=== PATIENT | female | born 1995 | race Caucasian/White ===

== ENCOUNTER 2023-06-05 00:32 | Emergency (ER) | payer MEDICAID, SELFPAY ==
[2023-06-05 00:37] VITALS: BP 139/91; PULSE 90; RESP 18; TEMP 36.3; O2SAT 99; BMI 37.7
[2023-06-05 02:47] VITALS: BP 130/80; PULSE 90; RESP 18; O2SAT 99
--- NOTE | 2023-06-05 05:15 | ED_ITS ---
HPI - General Adult General Chief complaint: Chest Pain Stated complaint: Chest pain Time Seen by Provider: 06/05/23 01:17 History of Present Illness HPI narrative: Downtime note Amanda Alaniz? Note was created in EMR down time.? Cut and pasted into EMR post visit. 27-year-old female presents the emergency department with a 6+ hour history of pain in the left arm radiating into the left chest with a feeling of vague shortness of breath.? Worse with lying down.? Nonexertional.? No palpitations.? No dyspnea on exertion, no swelling in her legs.? Pain is a little worse with movement as well.? Did not try any Tylenol or ibuprofen to help with her symptoms.? Reports that she was at a bridal shower the day prior had been drinking alcohol.? Woke up yesterday morning feeling a little hung over.? [place] a little nauseated through the day and laid down for a nap.? Pain was present when she awoke at approximately 6:00 p.m..? She has been eating and drinking normally.? Says that the chest feels ?full?.? Symptoms seem to be intermittent.? She has a notable history of a PFO, diagnosed by echo after murmur was heard in the clinic.? It is not symptomatic nor does she have any significant shunting or cardiac dysfunctioning as a result of this.? There is no family history of premature coronary artery disease.? She does not smoke.? No recent trauma, injury or heavy lifting.? She does have a 2-year-old that she carries frequently per her report. Past medical history benign per her report, no major long-term health problems.? No prescription medications, no allergies.? Nonsmoker. ROS is notable for the musculoskeletal and chest symptoms as above.? Negative further other generalized, cardiac, respiratory, GI, neurological, skin, other musculoskeletal concerns. On exam, blood pressure 139/91 with pulse 90 respiratory rate 18 temp 97.3? O2 sats are 99% on room air.? Generally she is awake and alert is not in distress good historian.? Mood behavior and affect are appropriate.? Head is atraumatic eyes with normal-appearing pupils and conjunctiva, normal visual gaze.? Orop harynx with acyanotic lips and moist membranes.? Neck with normal range of motion, no cervical tenderness.? Chest is normal to inspection.? Heart with regular rate rhythm, no murmurs rubs or gallops are heard.? Positive S1 and S2 with no gallop.? Lungs with good air entry in all lung keith no wheezes rales or rhonchi.? Musculoskeletal exam shows normal range of motion of both shoulders.? Positive impingement signs on left.? Normal range of motion of elbow wrist and hands.? No weakness to biceps, triceps or packed muscles.? Mild tenderness to palpation of supraspinatus and infraspinatus muscle bellies.? Pain can be reproduced with manipulation of rotator cuff supporting musculature.? No weakness or sensory deficits in hand.? Mood behavior and affect are appropriate with normal insight reasoning and judgment.? Skin warm well perfused without any rash. EKG is performed.? Normal sinus rhythm, rate of 86.? Normal axis.? No significant ST or T-wave abnormalities.? No ischemia, normal EKG.? Recommended some basic blood work, CBC, troponin, basic metabolic panel.? She will be given Toradol and cyclobenzaprine for suspected rotator cuff impingement.? Await findings. Blood work is back showing a white count of 10, hemoglobin 13.1 platelets of 241, troponin 0.00 as expected.? All normal, as expected.? Patient is noting improvement with the Toradol and Flexeril.? We discussed the rotator cuff type pain, long-term management.? She will follow up with her primary care provider if her symptoms persist for physical therapy referral.? See discharge instructions.? All questions answered. Discharge instructions Amanda Alaniz Unfortunately, our computer system is down for routine maintenance.? This happens about once a month.? As we discussed, your symptoms seem consistent with a rotator cuff inflammation.? These are very common.? There are no signs of any problems with her heart, blood work, EKG or other studies today.? I recommend for the pain, you start with Tylenol 1000 mg every 6 hours.? At on the prescription Toradol which is an anti-inflammatory medication that I have provided.? Take 1 tablet every 6-8 hours if the pain is still bothersome.? I will also give you a limited supply of Flexeril which is a muscle relaxant.? This may cause sleepiness so I recommend that you start with a half of a pill mostly for bedtime but can be used during the day if the pain is very bothersome.? I would recommend that you start a home exercise plan and be very mindful of what activities you may be doing that flare up your pain.? If your symptoms persist, I would recommend that you talk to your primary care doctor about a referral for physical therapy and an x-ray, stronger anti-inflammatory medication and or an injection. Come back to the emergency department if you have chest pain that is accompanied by rapid heart rate, feeling of passing out, severe shortness of breath, especially if your symptoms worsen with activity. Related Data Home Medications Medication Instructions Recorded Confirmed No Known Home Medications 06/05/23 06/05/23 Allergies Allergy/AdvReac Type Severity Reaction Status Date / Time No Known Drug Allergies Allergy Verified 06/05/23 00:46 PFSH PFS Social History Smoking Status: Former smoker Do you use any of these nicotine containing products: Vaping Products How often do you have a drink containing alcohol: 2-4 times a month How often do you have six or more drinks on one occasion: Never AUDIT-C Alcohol total score: 2 Non-prescribed substance use: marijuana (any form) Exam Const: Vital Signs, click to edit/add: Vital Signs - 24 hr 06/05/23 00:37 06/05/23 02:47 Temperature 97.3 F L Pulse Rate [Left P ulse Oximeter] 90 90 Respiratory Rate 18 18 Blood Pressure [Ri ght Upper Arm] 139/91 H 130/80 Pulse Oximetry 99 99 Oxygen Delivery Me thod Room Air Room Air Course Vital Signs Vital signs: Initial Vital Signs Temperature 97.3 F L 06/05/23 00:37 Temperature Source Temporal Artery Scan 06/05/23 00:37 Pulse Rate 90 06/05/23 00:37 Respiratory Rate 18 06/05/23 00:37 Blood Pressure 139/91 H 06/05/23 00:37 Blood Pressure Mean 107 H 06/05/23 00:37 Blood Pressure Position Supine 06/05/23 00:37 Pulse Oximetry 99 06/05/23 00:37 Oxygen Delivery Method Room Air 06/05/23 00:37 Vital Signs Temperature 97.3 F L 06/05/23 00:37 Pulse Rate 90 06/05/23 00:37 Respiratory Rate 18 06/05/23 00:37 Blood Pressure 139/91 H 08/21/23 00:37 Pulse Oximetry 99 06/05/23 00:37 Oxygen Delivery Method Room Air 06/05/23 00:37 Temperature 97.3 F L 06/05/23 00:37 Pulse Rate 90 06/05/23 02:47 Respiratory Rate 18 06/05/23 02:47 Blood Pressure 130/80 06/05/23 02:47 Pulse Oximetry 99 06/05/23 02:47 Oxygen Delivery Method Room Air 06/05/23 02:47 Discharge Plan Discharge Clinical Impression: Rotator cuff strain Patient Disposition: Home, Self-Care Condition: Improved Instructions: Rotator Cuff Injury (ED) Additional Instructions: Discharge instructions Amanda Alaniz Unfortunately, our computer system is down for routine maintenance.? This happens about once a month.? As we discussed, your symptoms seem consistent with a rotator cuff inflammation.? These are very common.? There are no signs of any problems with her heart, blood work, EKG or other studies today.? I recommend for the pain, you start with Tylenol 1000 mg every 6 hours.? At on the prescription Toradol which is an anti-inflammatory medication that I have provided.? Take 1 tablet every 6-8 hours if the pain is still bothersome.? I will also give you a limited supply of Flexeril which is a muscle relaxant.? This may cause sleepiness so I recommend that you start with a half of a pill mostly for bedtime but can be used during the day if the pain is very bothersome.? I would recommend that you start a home exercise plan and be very mindful of what activities you may be doing that flare up your pain.? If your symptoms persist, I would recommend that you talk to your primary care doctor about a referral for physical therapy and an x-ray, stronger anti-inflammatory medication and or an injection. Come back to the emergency department if you have chest pain that is accompanied by rapid heart rate, feeling of passing out, severe shortness of breath, especially if your symptoms worsen with activity. Prescriptions: No Action No Known Home Medications Follow Up/Referrals: Provider,Not a Local [Primary Care Provider] - Stand Alone Forms: [employer] Info Instructions
[2023-06-05 05:33] LABS: Basophils Absolute Auto 0.04 K/uL (0.00-0.30); Basophils Percent Auto 0.4 % (0.0-3.0); Eosinophils Absolute Auto 0.32 K/uL (0.00-0.50); Eosinophils Percent Auto 3.2 % (0.0-7.0); Hematocrit 39.9 % (33.0-51.0); Hemoglobin* 13.1 gm/dL (12.0-16.0); Immature Granulocytes Abs Auto 0.04 K/uL (0.00-0.30); Immature Granulocytes Pct Auto 0.4 %; Lymphocytes Absolute Auto 3.16 K/uL (0.90-2.90); Lymphocytes Percent Auto 31.6 % (20-44); Mean Corpuscular HGB Conc 33 gm/dL (32-36); Mean Corpuscular Hemoglobin 29 pg (26-34); Mean Corpuscular Volume 90 fL (80-100); Monocytes Percent Auto 5.8 % (0.0-11.0); Neutrophils Absolute Auto 5.86 K/uL (1.7-7.0); Neutrophils Percent Auto 58.6 % (42.0-72.0); Platelet Count* 241 K/uL (140-440); RDW Coefficient of Variation % 12.9 % (11.5-15.5); Red Blood Count 4.45 m/uL (4.00-5.20); Slide Review Reflex No
[2023-06-05 05:35] LABS: Blood Urea Nitrogen* 11 mg/dL (5-24); Calcium* 8.8 mg/dL (8.4-10.6); Carbon Dioxide* 24 mmol/L (20-32); Chloride* 105 mmol/L (96-114); Creatinine* 0.6 mg/dL (0.5-1.5); Est. Creatinine Clearance* 116.51; Estimated Glomerular Filt Rate 126 ml/min; Glucose* 97 mg/dL (60-115); Sodium* 138 mmol/L (135-149)
[2023-06-05 11:10] LABS: Anion Gap 9 mEq/L (7-15)
== END 2023-06-05 02:28 | disposition home or self-care (01) ==
PROVIDERS: Emergency Provider Family Medicine
DX: S46.012A Strain of muscle(s) and tendon(s) of the rotator cuff of left shoulder, initial encounter (principal)
CPT/HCPCS: 36415; 80048; 85025; 99283; 99284

== ENCOUNTER 2025-01-05 05:43 | Emergency (ER) | payer MEDICAID, SELFPAY ==
--- OUTSIDE RECORDS SUMMARY | 2025-01-05 05:46 | XMS_ITS | Encounter Summary ---
Author Organization [facility] Address [address] [place] [address] Care Team Providers Care Sales Warehouse Driver Name Role Phone Found, No Pcp Primary Care Provider Unavailab le Encounter Details Date Type Department Care Team (Latest Contact Info) Description 11/07/1997 Orders Only Renzo Samuel MD Social History Tobacco Use Types Packs/Day Years Used Date Smoking Tobacco: Never Assessed Comments Unknown Sex and Gender Information Value Date Recorded Sex Assigned at Not on file Legal Sex Female 4:54 AM CDT Gender Identity Not on file Sexual Orientation Not on file documented as of this encounter Plan of Treatment Not on file documented as of this encounter Visit Diagnoses Not on filedocumented in this encounter Care Teams Sales Warehouse Driver Relationship Specialty Start Date End Date Found, No PcpMD [address] [place] [address] PCP - General 01/02/18 documented as of this encounter
--- OUTSIDE RECORDS SUMMARY | 2025-01-05 05:46 | XMS_ITS | Clinical Summary ---
Author Organization [facility] Address [address] [place] [address] Care Team Providers Care Striping Machine Operator Name Role Phone Emely Muhammad PA-C Primary Care Pr ovider Allergies No known active allergies Medications senna (SENOKOT) 8.6 MG tablet Take 1 tablet by mouth daily 30 tablet 0 6 Active Additional Information Patient not taking.Reported on 09/02/2018 ondansetron (ZOFRAN) 4 MG tabletIndication s:Throat pain Take 1 tablet (4 mg) by mouth every 8 hours as needed for nausea 10 tablet 8 Active sertraline (ZOLOFT) 50 MG tablet Take 50 mg by mouth daily Active Vit-Fe Fumarate-FA ( MULTIVITAMIN W/IRON) 27-0.8 MG tabletIndication s: Take 1 tablet by mouth daily Active Active Problems Problem Noted Date Diagnosed Date state 04/23/2015 Indication for care in labor and delivery, antep artum 04/22/2015 Decreased movement 02/19/2015 Encounter for triage in patient 015 Supervision of normal first 09/30/2014 Anxiety 07/16/2013 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 Murmur, cardiac Immunizations Name Administration Dates Next Due DTAP (<7y) 01/19/2001 HIB (PRP-T) 08/04/1997,07/24/1996,05/22/1996 HepB 07/24/1996,02/21/1996,01/09/1996 Historical DTP/aP 08/04/1997,07/24/1996,05/22/19 96,02/21/1996 MMR (MMRII) 01/19/2001,08/04/1997 OPV, trivalent, live 07/24/1996,05/22/1996,02/20 Poliovirus, inactivated (IPV) 01/19/2001 TDAP Vaccine (Adacel) 03/17/2015,05/26/2008 Varicella (Varivax) 05/26/2008,01/19/2001 Family History Medical History Relation Comments Family History Negative Brother 1 Family History Negative Brother 2 Unknown/Adopted Father Cardiovascular Maternal Grandfather irregular r hythm Family History Negative Mother Unknown/Adopted Paternal Grandfather Unknown/Adopted Paternal Grandmother Relation Status Comments Brother 1 Brother 2 Father Maternal Grandfather Alive Maternal Grandmother Alive Mother Alive Paternal Grandfather Other Paternal Grandmother Other Social History Tobacco Use Types Packs/Day Years Used Date Smoking Tobacco: Every Day Vaping Device Smokeless Tobacco: Never Tobacco Cessation:Ready to Q uit: No Comments:daily vaping Alcohol Use Standard Drinks/Week Comments Not Currently 0 (1 standard drink = 0.6 oz pur e alcohol) Adolescent Education Answer Date Record ed Getting School Help Needed Not on file 07/30 Comments No Sex and Gender Information Value Date Recorded Sex Assigned at Not on file Legal Sex Female 3:19 AM HAND BUFFER Gender Identity Not on file Sexual Orientation Not on file Occupation Industry Job Start Date Job End Date Not on file Not on file Not on file Not on file Last Filed Vital Signs Vital Sign Reading Time Taken Comments Blood Pressure 146/93 02/06/2023 7:58 PM CDT Pulse 72 02/06/2023 11:12 PM CDT Temperature 36.2 C (97.1 F) 02/06/2023 7:58 PM CDT Respiratory Rate 16 02/06/2023 11:12 PM CDT Oxygen Saturation 97% 02/06/2023 11:12 PM CDT Inhaled Oxygen Concentration - - Weight 82.6 kg (182 lb) 05/11/2021 10:13 AM CDT Height 158.8 cm (5' 2.5) 05/11/2021 10:13 AM CD T Body Mass Index 32.76 05/11/2021 10:13 AM CDT Plan of Treatment Health Maintenance Due Date Last Done Comments ADVANCE CARE PLANNING 1995 ANNUAL REVIEW OF HM ORDERS 1995 Pneumococcal Vaccine: Pediatrics (0 to 5 Years) and At-Risk Patients (6 to 49 Years) (1 of 2 - PCV) 12/25/2014 PHQ-9 07/29/2015 01/27/2015, 08/16, 08/13/2013, Additional history exists PAP 12/25/2016 YEARLY PREVENTIVE VISIT 01/06/2023 01/06/2022, 05/26 COVID-19 Vaccine ( - season) 2024 INFLUENZA VACCINE (#1) 2024 DTAP/TDAP/TD IMMUNIZATION (9 - Td or Tdap) 06/24/2031 06/24/2021, 03/17/2015, 05/26/2008, Additional history exists ZOSTER IMMUNIZATION (1 of 2) 12/25/2045 HEPATITIS B IMMUNIZATION Completed 996, 07/24/1996, 02/21/1996, Additional history exists DEPRESSION ACTION PLAN Completed 3, 09/28/2012, 09/14/2012 CHLAMYDIA SCREENING Discontinued 09/30/2014, 2 HEPATITIS C SCREENING Completed 02/24/2021 HIV SCREENING Completed 02/24/2021, 09/30/2014 HPV IMMUNIZATION Aged Out No longer e ligible based on patient's age to complete this topic MENINGITIS IMMUNIZATION Aged Out No l onger eligible based on patient's age to complete this topic Procedures Procedure Name Priority Date/Time Associated Diagnosis Comments CHLAMYDIA TRACHOMATIS PCR Routine 09/30/2014 6:13 PM HAND BUFFER Supervision of normal first , first trimester HIV ANTIGEN ANTIBODY COMBO Routine 09/30/2014 3:30 PM HAND BUFFER Supervision of normal first , unspecified trimester from Last 3 Months or Most Recently Relevant to Health Maintenance Results * Chlamydia trachomatis PCR (09/30/2014 6:13 PM HAND BUFFER) Specimen Description [facility] Chlamydia Trachomatis PCR Negative Negative for C. trachomatis rRNA by swatch maker mediated amplification. A negative result by swatch maker mediated amplification does not preclude the presence of C. trachomatis infection because results are dependent on proper and adequate collection, absence of inhibitors, and sufficient rRNA to be detected. [facility]G [facility] Specimen from vagina (specimen) 09/30/2014 6:13 PM HAND BUFFER 09/30/2014 6:15 PM HAND BUFFER us Nikole Taylor DO LAB - MICRO GENERAL ORDER LEONIDAS Final Result [facility] [address] [place], [place] [address] [address] [place] [address] * HIV Antigen Antibody Combo (09/30/2014 3:30 PM HAND BUFFER) HIV Antigen Antibody Combo Nonreactive HIV-1 p24 Ag & HIV-1/HIV-2 Ab Not Detected NR [facility] Blood specimen (specimen) 09/30/2014 3:30 PM HAND BUFFER 09/30/2014 3:35 PM HAND BUFFER us Nikole Taylor DO LAB - BLOOD ORDERABLES Fi nal Result [facility] [address] [place] [address] from Last 3 Months or Most Recently Relevant to Health Maintenance Insurance * Guarantor: MIAH KHALIL Account Type Relation to Patient Date of Phone Billing Address Personal/Family Mother [address] [place] [id number] [facility] [employer] Address: [address] [place] [address] Care Teams Striping Machine Operator Relationship Specialty Start Date End Date Emely Muhammad PA-C [address] [place] [address] PCP - General Family Practice 05/17/13
--- OUTSIDE RECORDS SUMMARY | 2025-01-05 05:46 | XMS_ITS | Encounter Summary ---
Author Organization [facility] Address [address] [place] [address] Care Team Providers Care Bobbin Winder Name Role Phone Found, No Pcp Primary Care Provider Unavailab le Encounter Details Date Type Department Care Team (Latest Contact Info) Description 02/02/1998 Orders Only Gage Multani MD Social History Tobacco Use Types Packs/Day [...] on filedocumented in this encounter Care Teams Bobbin Winder Relationship Specialty Start Date End Date Found, No Pcp, [address] [place] [address] PCP - General 01/02/18 documented as of this encounter
--- OUTSIDE RECORDS SUMMARY | 2025-01-05 05:46 | XMS_ITS | Encounter Summary ---
Author Organization [facility] Address [address] [place] [address] Care Team Providers Care Dinkey Engine Operator Name Role Phone Found, No Pcp MD Primary Care Provider Unavailab le Encounter Details Date Type Department Care Team (Latest Contact Info) Description 01/09/1996 Office Visit Marybeth Hernandez APRN, [facility] [address] [place], [place] [id number] Social History Tobacco Use Types Packs/Day Years Used Date Smoking Tobacco: Never Assessed Comments Unknown Sex and Gender Information Value Date Recorded Sex Assigned at Not on file Legal Sex Female 4:54 AM CDT Gender Identity Not on file Sexual Orientation Not on file documented as of this encounter Progress Notes * Marybeth Hernandez APRN, CNP - 01/09/1996 12:00 AM CSTS: Amanda is a 2-week-old female here with her mom for a routine physical examination. Amanda is the product of a normal and a vaginal delivery. Apgars were 8 and 9. weight 6 pounds 15 ounces, discharge weight 6 pounds 14 ounces. course was uneventful and she went home with her mom. She was subsequently seen by myself on 01/01/96 and was 7 pounds 0 ounces. Nutrition--Similac with iron. She takes anywhere from 2-3 ounces every 3 hours. Developmental--she is 6 ounces above weight. Height 90th percentile, weight 50th percentile, OFC 90th percentile. O: Alert. Head and neck--anterior fontanelle is open and flat. Neck supple, scalp clean. EENT--eyes PERRLA. Both TMs are visible, with a good light reflex. Arhinorrhea. Throat and mouth are clean. Heart and lungs are clear, no apparent murmurs. Abdomen soft, no organomegaly. External genitalia clean. Femorals present and equal. Extremities within normal limits. Skin--estonian spots on lower back and buttocks. Neuro within normal limits. A: Healthy 2 week old. P: Hepatitis B #1 today. Discussion held with mother concerning the 3- and 6-week growth spurts. Back at age 2 months for next complete physical. [employer] CARDS [employer] ANNOUNCEMENTS documented in this encounter Plan of Treatment Not on file documented as of this encounter Visit Diagnoses Not on filedocumented in this encounter Care Teams Dinkey Engine Operator Relationship Specialty Start Date End Date Found, No Pcp, [address] [place] [address] PCP - General 01/02/18 documented as of this encounter
--- OUTSIDE RECORDS SUMMARY | 2025-01-05 05:46 | XMS_ITS | Encounter Summary ---
Author Organization [facility] Address [address] [place] [address] Care Team Providers Care Strategic Advisor Name Role Phone Found, No Pcp Primary Care Provider Unavailab le Encounter Details Date Type Department Care Team (Latest Contact Info) Description 01/06/1998 Orders Only Graeme Jimenez MD [facility] [address] [place] [address] Social History Tobacco Use Types Packs/Day Years [...] on filedocumented in this encounter Care Teams Strategic Advisor Relationship Specialty Start Date End Date Found, No Pcp, [address] [facility] [place] [address] PCP - General 01/02/18 documented as of this encounter
--- OUTSIDE RECORDS SUMMARY | 2025-01-05 05:46 | XMS_ITS | Clinical Summary ---
Author Organization [facility] Address [address], [place] [address] Care Team Providers Care Consumer Affairs Specialist Name Role Phone Found, No Pcp MD Primary Care Provider Unavailab le Source Comments You are receiving this document as you are listed as the primary care provider,follow-up provider, or the patient has been referred to you for consultation.This is in compliance with the Medicare and[facility] EHR Incentive Program,which states Providers who transition their patient to another setting of careor provider of care or refers their patient to another provider of care shouldprovide summary care record for each transition of care or referral. [facility] Allergies No known active allergies Medications ibuprofen (MOTRIN) 800 MG tablet Take 1 tablet by mouth 3 times daily. 30 tablet 0 03/16/2016 Active Active Problems No known active problems Immunizations Immunization Administration Dates Next Due DTP-Hib (Tetramune) 08/04/1997,07/24/1996,1995,02/21/1996 HepB Ped/Adol (0-18 yrs) 07/24/1996,02/21/1996,0 01/09/1996 MMR 08/04/1997 OPV, Trivalent (Orimune or tOPV) 07/24/1996,0804/1996,02/21/1996 Social History Tobacco Use Types Packs/Day Years Used Date Smoking Tobacco: Every Day Smokeless Tobacco: Never Comments No Sex and Gender Information Value Date Recorded Sex Assigned at Not on file Legal Sex Female 4:54 AM CDT Gender Identity Not on file Sexual Orientation Not on file Last Filed Vital Signs Vital Sign Reading Time Taken Comments Blood Pressure 137/83 11/03/2019 12:45 PM LACQUER POLISHER Pulse 58 11/03/2019 12:45 PM LACQUER POLISHER Temperature 36.3 C (97.4 F) 11/03/2019 12:45 PM LACQUER POLISHER Respiratory Rate 16 11/03/2019 12:45 PM LACQUER POLISHER Oxygen Saturation 100% 11/03/2019 12:45 PM LACQUER POLISHER Inhaled Oxygen Concentration - - Weight - - Height - - Body Mass Index - - Plan of Treatment Health Maintenance Due Date Last Done Comments Cervical Cancer Screening Due 1995 Hep C Screening (Preventive Services) 1995 IPV (Polio) (4 of 4 - 4-dose series) 1999 07/24/1996, 05/22/1996, 02/21/1996 DTaP/Tdap/Td (5 - Tdap) 12/25/2006 08/04/19 97, 07/24/1996, 05/22/1996, Additional history exists HIV Screening (Preventive Services) 2011 Adult Preventive Visit 12/25/2013 Pneumococcal (1 of 2 - PCV) 12/25/2014 COVID-19 Vaccine ( - season) 2024 Influenza (#1) 2024 Zoster/Shingles (1 of 2) 12/25/2045 HepB Completed 07/24/1996, 05/1996, 01/09/1996 Hib Completed 08/04/1997, 06/1996, 05/22/1996, Additional history exists Chlamydia Discontinued 06/07/2016 HPV Vaccine Aged Out No longer eligi ble based on patient's age to complete this topic HepA Aged Out No longer eligi ble based on patient's age to complete this topic MCV4 Aged Out No longer eligi ble based on patient's age to complete this topic Meningococcal B Aged Out No longer el igible based on patient's age to complete this topic Procedures Procedure Name Priority Date/Time Associated Diagnosis Comments CHLAMYDIA & GC (14 YEARS & OLDER) Routine 06/07/2016 1:20 PM CDT Pelvic pain in female from Last 3 Months or Most Recently Relevant to Health Maintenance Results * Chlamydia & GC (06/07/2016 1:20 PM CDT) Chlamydia Trachomatis STD Negative Negative HP CONVERSION Comment: Test Performed by Numerical Control Router Operator Mediated Amplification CLIA Number [id number] N. gonorrhoeae STD Negative Negative HP CONVERSION Comment: Test Performed by Numerical Control Router Operator Mediated Amplification Performed at [facility], [address] [place] [address] CLIA Number [id number] Source STD Endocervical HP CONVERSION Comment:CLIA Number [id number] 06/07/2016 1:20 PM CDT 06/07/2016 7:17 PM CDT Marcelo Baldwin PA-C LAB_1 Final Resul t HP CONVERSION from Last 3 Months or Most Recently Relevant to Health Maintenance Care Teams Consumer Affairs Specialist Relationship Specialty Start Date End Date Found, No Pcp, [address] [place] [address] PCP - General 01/02/18
--- OUTSIDE RECORDS SUMMARY | 2025-01-05 05:46 | XMS_ITS | Encounter Summary ---
Author Organization [facility] Address [address], [place] [address] Care Team Providers Care Bricklayer Paving Brick Name Role Phone Found, No Pcp Primary Care Provider Unavailab le Encounter Details Date Type Department Care Team (Latest Contact Info) Description 05/22/1996 Office Visit Jag Rocha Social History Tobacco Use Types Packs/Day Years Used Date Smoking Tobacco: Never Assessed Comments Unknown Sex and Gender Information Value Date Recorded Sex Assigned at Not on file Legal Sex Female 4:54 AM CDT Gender Identity Not on file Sexual Orientation Not on file documented as of this encounter Progress Notes * Jag Rocha - 05/22/1996 12:00 AM CDTS: Doing very well. Feeding with Similac with iron, taking about 6-7 oz, occasionally 8 oz, a feeding. Sleeping through the night. Bowel movements normal. Good disposition. Smiling, happy. No problems or concerns. O: Well developed, well nourished, alert, and in no acute distress. E: TMs white with good LM and LR. Throat clear without injection or exudate. Neck supple. Chest clear. Heart--normal sinus rhythm without murmur. Abdomen soft. Genitalia--normal female. Extremities--full range of motion. A: Healthy child. P: PDQ is within normal limits. Tetramune and OPV. RV in two months. documented in this encounter Plan of Treatment Not on file documented as of this encounter Visit Diagnoses Not on filedocumented in this encounter Care Teams Bricklayer Paving Brick Relationship Specialty Start Date End Date Found, No Pcp, [address] [place] [address] PCP - General 01/02/18 documented as of this encounter
--- OUTSIDE RECORDS SUMMARY | 2025-01-05 05:46 | XMS_ITS | Clinical Summary ---
Author Organization [employer] Address [address] [place] [address] Care Team Providers Care Radio Program Checker Name Role Phone Naz Humphrey MD Primary Care Provider Allergies No known active allergies Medications ibuprofen (Motrin IB) 200 mg tabletIndicatio ns:Vaginal delivery (HC) Take 3 Tablets (600 mg) by mouth every 6 hours if needed for Pain (for uterine cramping). Take with food. 100 Tablet 1 Active hydrOXYzine HCL (ATARAX) 25 mg tabletIndicatio ns:Anxiety Take 1 Tablet (25 mg) by mouth every 6 hours if needed for Anxiety. 25 Tablet 3 Active sodium chloride (OCEAN) 0.65 % nasal solutionIndicat ions:Nasal obstruction 2 Sprays in affected nostril(s) every 2 hours. While awake until follow-up appointment. 45 mL 2 4 Active sodium bicarb-sodium chloride (NEILMED SINUS RINSE)Indicatio ns:Nasal obstruction As directed three times daily. Gently rinse both nasal cavities. Follow mixing instructions on box. 50 Each 4 Active traMADoL (ULTRAM) 50 mg tabletIndicatio ns:Postoperativ e pain Take 1 Tablet (50 mg) by mouth every 6 hours if needed for Pain. 15 Tablet 4 Active lamoTRIgine 25 mg tablet TAKE 1 TABLET NIGHTLY FOR 14 DAYS, THEN TAKE 2 TABLETS NIGHTLY . 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 Resolved Problems Problem Noted Date Diagnosed Date Resolved Date White classification A2 gest ational diabetes mellitus (GDM), insulin controlled 08/06/202101/06 Insulin controlled gestation al diabetes mellitus (GDM) during 08/05/2021 01/07/20 Vaginal delivery 08/05/2021 01/06/2022 White classification A2 gest ational diabetes mellitus (GDM), insulin controlled 07/05/202101/06 Large for gestational age fe tus affecting management of mother, third trimester, other fetus 07/05/2021 01/06/2022 Overview (07/05/2021): US OB FOLLOW UP PER FETUS: [facility] Referred By: AMPARO LUNA Indications Code 34 weeks gestation of Z3A.34 MOB with heart murmur, PFO Declined serum screening 04/12/21 - Targeted ultrasound, EFW 69% Dx GDMA2 - insulin Interval growth today MPP (07/05/2021): EFW 95% (3117 grams)/AC > 97% IMPRESSIONS: Intrauterine at 34w 5d. presentation is Cephalic. EFW 3117 grams, percentile: 95. Normal Deepest Vertical Pocket of amniotic fluid: 7.1 cm. No major anomalies identified on limited survey. large for gestational age (LGA) growth pattern Placental location: Anterior. There is no evidence of placenta previa. RECOMMENDATIONS: -Return to primary OB provider for continued care. -No alterations in the delivery plan are necessary. -No medication changes are indicated. -Begin BPP/NST-NST weekly until delivery -Present findings are reassuring. No further ultrasounds are necessary for the present indication. GDM (gestational diabetes mellitus), class A1 05/31/20 21 07/05/2021 Impaired glucose in , antepartum 05/26/2021 06/24/2021 Encounter for supervision of normal in second trimester 02/24/2021 01/06/2022 Overview (02/24/2021): Level 2 anatomy u/s due to mothers cardiac HX Hx Depression and anxiety: close watch PP Murmur, cardiac 02/23/2021 01/06/2022 Overview (02/24/2021): A contrast injection (Bubble Study) was performed that was mildly positive. A patent foramen ovale is suspected. White classification A2 gest ational diabetes mellitus (GDM), insulin controlled 01/06 Overview (07/05/2021): US OB FOLLOW UP PER FETUS: [facility] 07/05/2021 Referred By: AMPARO LUNA Indications Code 34 weeks gestation of Z3A.34 MOB with heart murmur, PFO Declined serum screening 04/12/21 - Targeted ultrasound, EFW 69% Dx GDMA2 - insulin Interval growth today [facility] (07/05/2021): EFW 95% (3117 grams)/AC > 97% IMPRESSIONS: Intrauterine at 34w 5d. presentation is Cephalic. EFW 3117 grams, percentile: 95. Normal Deepest Vertical Pocket of amniotic fluid: 7.1 cm. No major anomalies identified on limited survey. large for gestational age (LGA) growth pattern Placental location: Anterior. There is no evidence of placenta previa. RECOMMENDATIONS: -Return to primary OB provider for continued care. -No alterations in the delivery plan are necessary. -No medication changes are indicated. -Begin BPP/NST-NST weekly until delivery -Present findings are reassuring. No further ultrasounds are necessary for the present indication. Immunizations Immunization Administration Dates Next Due DTP 08/04/1997,07/24/1996,05/22/1996 ,02/21/1996 DTP-HIB 08/04/1997,07/24/1996,05/22/1996 ,02/21/1996 DTaP 01/19/2001,03/03/2000 HIB PRP-T (ActHIB,Hiberix) 08/04/1997,07/24/1996 ,05/22/1996 Hepatitis B (Peds) 07/24/1996, 6,02/21/1996,02/21/1996,01/08,01/09/1996 Inactivated Polio Vaccine 01/19/2001 MMR 01/19/2001,03/03/2000,08/04/1997 Oral Polio Vaccine 03/03/2000,07/24/1996, 996,02/21/1996 Polio Virus, Unspecified 03/03/2000 Tdap 06/24/2021,03/17/2015,05/26/2008 Varicella Vaccine 05/26/2008,01/19/2001 Family History Medical History Relation Name Comments Allergies Brother 1 Lanre Good Health Brother 2 Brock half brother Unknown Father uncertain of bi ological father's hx; step father committed suicide Unknown Maternal Grandfather Unknown Maternal Grandmother Allergies Mother Anxiety disorder Mother Depression Mother Miscarriages / Stillbirths Mother Unknown Paternal Grandfather Unknown Paternal Grandmother Good Health Son Anesthesia Problem No Family History defects No Family History Blood Disease No Family History Clotting disorder No Family History Diabetes No Family History Heart Disease No Family History Pulmonary embolism No Family History Thyroid Disease No Family History Relation Name Status Comments Brother 1 Lanre Alive Brother 2 Brock Alive Father Other Maternal Grandfather Alive Maternal Grandmother Alive Mother Alive Paternal Grandfather Alive Paternal Grandmother Alive Son Alive Social History Tobacco Use Types Packs/Day Years Used Date Smoking Tobacco: Former Cigarettes 1 2018 Smokeless Tobacco: Never Tobacco Cessation:Counseling Given: Yes Alcohol Use Standard Drinks/Week Comments Not Currently 0 (1 standard drink = 0.6 oz pur e alcohol) PHQ-2 Answer Date Recorded PHQ-2 TOTAL SCORE 0 03/15/2023 Social Connections Answer Date Recorded Do you often feel lonely or isolated from those around you? 0 06/10/2024 Financial Resource Strain Answer Date R ecorded Difficulty of Paying Living Expenses 3 06/10/2024 Difficulty of Paying Living Expenses Not on file 06/10/2024 Food Insecurity Answer Date Recorded Do you worry your food will run out before you are able to buy more? 1 06/10/2024 Transportation Needs Answer Date Record ed Does lack of transportation keep you from medica l appointments? 1 06/10/2024 Does lack of transportation keep you from work, meetings or getting things that you need? 1 06/10/2024 Housing Stability Answer Date Recorded What is your housing situation today? 1 06/10/2024 Utilities Answer Date Recorded Do you have trouble paying f or utilities (for example, heat, electricity, water, phone)? 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 1 pull with vacuum, 3rd degree with extension laceration. 100 EBL. Pushed 4 hours 44 minutes 2020 Term 39w 1d 9h 38m 9h 00m/0h 30m/0h 08m 4.09 kg (9 lb 0.3 oz) M VAGINA L FLORESITA Epidur al Livin g 8 9 ALKA SCHAFER,BB DEVONTE Mercado, Elier rodas MD Complications:None Delivery Location:Hospital ( [facility] [address] L&D TRIAGE) Last Filed Vital Signs Vital Sign Reading Time Taken Comments Blood Pressure 118/89 07/01/2024 1:00 PM CDT Pulse 60 07/01/2024 1:00 PM CDT Temperature 36.7 C (98 F) 07/01/2024 11:42 AM CDT Respiratory Rate 16 07/11/2024 1:51 PM CDT Oxygen Saturation 96% 07/01/2024 1:00 PM CDT Inhaled Oxygen Concentration - - Weight 83.3 kg (183 lb 11.2 oz) 07/01/2024 8:36 AM CDT Height 162.6 cm (5' 4) 06/26/2024 2:30 PM CDT Body Mass Index 31.53 06/26/2024 2:30 PM CDT Plan of Treatment Health Maintenance Due Date Last Done Comments Depression screening for age 12+ 03/15/2024 03/15/2023, 01/06/2022, 12/09/2021, Additional history exists COVID-19 vaccine series (2023- season) 2024 Influenza Vaccine (#1) 2024 Pap test for age 21-65 01/06/2025 01/06/2022 BMI (ht and wt on same day) for age 18+ 06/10/2025 06/10/2024, 01/24/2024, 09/25/2023, Additional history exists Tetanus booster 06/24/2031 06/24/2021, 11/2014, 05/26/2008 HIV for age 15-65 Completed 02/24/2021 Hepatitis C screening for age 18-79 Completed 02/24/2021 Tdap Completed 06/24/2021, 11/2014, 05/26/2008 Pneumococcal series for age 6-49 Aged Out No longer eligible based on patient's age to complete this topic Procedures Procedure Name Priority Date/Time Associated Diagnosis Comments CREDIT REFERENCE CLERK THIN PREP PAP SCREEN IMAGED Routine 01/06/2022 3:50 PM CDT Pap smear for cervical cancer screening ANTI HIV 1/2 Routine 02/24/2021 3:14 PM CDT Encounter for supervision of other normal in second trimester (HC) ANTI HCV Routine 02/24/2021 3:14 PM CDT Encounter for supervision of other normal in second trimester (HC) from Last 3 Months or Most Recently Relevant to Health Maintenance Results * CREDIT REFERENCE CLERK THIN PREP PAP SCREEN IMAGED (01/06/2022 3:50 PM CDT) Case Report Gynecologic Cytology Report Case: [id number] Authorizing Provider: Naz Humphrey MD Collected: 01/06/2022 3939 Ordering Location: [facility] Received: 01/06/2022 1550 Clinic First Screen: Mary Guillen Specimen: CREDIT REFERENCE CLERK ThinPrep Vial Screening, Cervical 01/19/2022 10:39 AM CDT [facility] [employer] [facility] INTERPRETATION/ RESULT NEGATIVE FOR INTRAEPITHELIAL LESION OR MALIGNANCY (NIL) (none) 01/19/2022 10:39 AM CDT [facility] [employer] [facility] IMEN ADEQUACY Satisfactory for evaluation Endocervical component present 01/19/2022 10:39 AM CDT [facility] [employer] [facility] HPV REQUEST HPV if ASCUS 01/19/2022 10:39 AM CDT [facility] [employer] [facility] Date of LMP Prior to 01/19/2022 10:39 AM CDT [facility] [employer] [facility] Last Pap Date Never had 01/19/2022 10:39 AM CDT [facility] [employer] [facility] Last Pap Result First Pap/Unknown 10:39 AM CDT [facility] [employer] [facility] Abnormal Pap or Dulzura Bx in last 5 years No 01/19/2022 10:39 AM CDT [facility] [employer] [facility] Menstrual Status Hormonally Suppressed 01/19/2022 10:39 AM CDT [facility] [employer] [facility] Dulzura Bx Done Today No 01/19/2022 10:39 AM CDT [facility] [employer] [facility] Additional Information None given 01/19/2022 10:39 AM CDT [facility] [employer] [facility] Comment: Cytology is screened at [facility] - [address], [place] [address] and [facility] - [address], [place] [address] and [facility] - [address] [place] [address] Interpreted at [facility] - [address], [place] [address] Automated Review Successful 01/19/2022 10:39 AM CDT [facility] [employer] [facility] Comment:Specimen processed s uccessfully by automated psychologist clinical device, ThinPrep Imaging System, [employer] Note The pap test is a screening technique, not a diagnostic procedure. It is used primarily to screen for squamous cancers and precursor lesions. Published studies have shown that it is subject to both false negative and false positive results. The pap test should not be used as the sole means to diagnose or exclude pre-malignant and malignant lesions. 01/19/2022 10:39 AM CDT [facility] Other (Cervical) Non-Blood / Unknown 01/06/2022 3:50 PM CDT 01/06/2022 3:50 PM CDT Naz Humphrey MD PATHOLOGY/CYTOLOGY Melinda l Result Performing Organization Address City/[facility]/ZIP Co de Phone Number [facility] [address] [place] [address], [place] * ANTI HCV (02/24/2021 3:14 PM CDT) HEPATITIS C ANTIBODY Non-React aj Non-React aj 02/24/2021 9:34 PM CDT [facility] Comment:Antibodies to HCV no t detected; does not exclude the possibility of exposure to HCV. Blood BLOOD SPECIMEN / Unknown Venipuncture / Unknown 02/24/2021 3:14 PM CDT 02/24/2021 3:18 PM CDT us Amparo Luna CNM SEND OUTS Final Resu lt [facility] [address] [place] [id number], [place] * ANTI HIV 1/2 (02/24/2021 3:14 PM CDT) HIV-1/HIV-2 ANTIBODY Non-Reacti ve Non-Reacti ve 02/24/2021 9:03 PM CDT [facility] Comment:HIV-1 p24 and HIV-1/ HIV-2 Ab not detected. Blood BLOOD SPECIMEN / Unknown Venipuncture / Unknown 02/24/2021 3:14 PM CDT 02/24/2021 3:18 PM CDT Amparo Luna CN SEND OUTS Final Resu lt [facility] [address] [place] [address], [place] from Last 3 Months or Most Recently Relevant to Health Maintenance Insurance Advance Directives * Full Code (Latest Code Status on File) Date Activated Date Inactivated Comments 07/01/2024 10:12 AM 07/01/2024 3:27 PM Question Answer Comments Code Status Discussion: Unable to Assess Preferences, Provider to review later * Full Code Date Activated Date Inactivated Comments 07/01/2024 8:25 AM 07/01/2024 10:12 AM Question Answer Comments Code Status Discussion: Unable to Assess Preferences, Provider to review later * Full Code Date Activated Date Inactivated Comments 08/04/2021 8:48 PM 08/07/2021 3:58 PM Question Answer Comments Code Status Discussion: Not Discussed * Full Code Date Activated Date Inactivated Comments 08/04/2021 8:25 PM 08/04/2021 8:48 PM Question Answer Comments Code Status Discussion: Not Discussed Care Teams Radio Program Checker Relationship Specialty [place] [address] [address] [place] [address] PCP - General Family Practice 02/02/22
--- OUTSIDE RECORDS SUMMARY | 2025-01-05 05:46 | XMS_ITS | Encounter Summary ---
Author Organization [employer] Address [address], [place] [address] Care Team Providers Care Claim Rep Name Role Phone Found, No Pcp MD Primary Care Provider Unavailab le Encounter Details Date Type Department Care Team (Latest Contact Info) Description 01/01/1996 Office Visit Marybeth Hernandez APRN, AME [address] [place], [place] [id number] Social History Tobacco Use Types Packs/Day Years Used Date Smoking Tobacco: Never Assessed Comments Unknown Sex and Gender Information Value Date Recorded Sex Assigned at Not on file Legal Sex Female 4:54 AM CDT Gender Identity Not on file Sexual Orientation Not on file documented as of this encounter Progress Notes * Marybeth Hernandez APRN, CNP - 01/01/1996 12:00 AM CSTS: Amanda is a 6-day old infant here with her mom for assessment. She is the product of a normal and a vaginal delivery. Her APGARS were 8 and 9, weight 6# 15 oz. Discharge weight 6#, 14 oz. course was uneventful and she went home after 36 hours. Nutrition, Similac with iron. She takes approximately two ounces every 2-4 hours. The only concern that mom voices today is to have her cord checked. She's noticed sometimes a little bit of bleeding. She's voiding well and she stools with almost each feeding. O: Alert and active. Head and neck, anterior fontanel was open and flat, neck is supple. Throat and mouth are clean. Heart and lungs, there's no murmurs. Abdomen is soft, umbilical cord is on, clean, no evidence of infection. Skin, there is no evidence of jaundice. A: assessment. P: Continue with her formula. I discussed the feedings with the mom. Back at age two weeks for next complete physical, and also the beginning of her immunizations. cc: HOLOGIST CLINICAL documented in this encounter Plan of Treatment Not on file documented as of this encounter Visit Diagnoses Not on filedocumented in this encounter Care Teams Claim Rep Relationship Specialty Start Date End Date Found, No Pcp, [address] [place] [address] PCP - General 01/02/18 documented as of this encounter
--- OUTSIDE RECORDS SUMMARY | 2025-01-05 05:46 | XMS_ITS | Encounter Summary ---
Author Organization [facility] Address [address] [address] Care Team Providers Care Cylinder Block Mechanic Name Role Phone Found, No Pcp Primary Care Provider Unavailab le Encounter Details Date Type Department Care Team (Latest Contact Info) Description 10/10/1997 Office Visit Tanna Serrano MD Social History Tobacco Use Types Packs/Day Years Used Date Smoking Tobacco: Never Assessed Comments Unknown Sex and Gender Information Value Date Recorded Sex Assigned at Not on file Legal Sex Female 4:54 AM CDT Gender Identity Not on file Sexual Orientation Not on file documented as of this encounter Progress Notes * Tanna Serrano - 10/10/1997 12:00 AM CSTS: This is a [id number] little girl here with her aunt because she has had a cold for a week and a cough for a couple of days and she is getting worse. Also, she is complaining that her right ear hurts by saying owie. The aunt is babysitting for her while her parents are out of town. O: Her weight is 24 pounds. Her temperature is 97.9. She looks well. Conjunctiva clear. Right tympanic membrane is erythematous compared to the left and the tympanogram is flat. Throat is clear. Neck, no adenopathy. Lungs are clear. She does have some nasal discharge. A: Upper respiratory infection and right otitis media. P: Septra 1 teaspoon b.i.d. X 10 days. Recheck in three to four weeks. cc: L TRANSCRIBER documented in this encounter Plan of Treatment Not on file documented as of this encounter Visit Diagnoses Not on filedocumented in this encounter Care Teams Cylinder Block Mechanic Relationship Specialty Start Date End Date Found, No PcpMD [address] [place] [address] PCP - General 01/02/18 documented as of this encounter
--- OUTSIDE RECORDS SUMMARY | 2025-01-05 05:46 | XMS_ITS | Encounter Summary ---
Author Organization [facility] Address [address] [place] [address] Care Team Providers Care Civilian Technician Name Role Phone Found, No Pcp Primary Care Provider Unavailab le Encounter Details Date Type Department Care Team (Latest Contact Info) Description 10/10/1997 Orders Only Tanna Serrano MD Social History Tobacco Use [...] on filedocumented in this encounter Care Teams Civilian Technician Relationship Specialty Start Date End Date Found, No Pcp, [address] [place] [address] PCP - General 01/02/18 documented as of this encounter
--- OUTSIDE RECORDS SUMMARY | 2025-01-05 05:46 | XMS_ITS | Encounter Summary ---
Author Organization [facility] Address [address] [place] [address] Care Team Providers Care Undercover Cop Name Role Phone Found, No Pcp Primary Care Provider Unavailab le Encounter Details Date Type Department Care Team (Latest Contact Info) Description 09/01/1997 Orders Only Verena Sheehan MD Social History Tobacco Use Types Packs/Day [...] on filedocumented in this encounter Care Teams Undercover Cop Relationship Specialty Start Date End Date Found, No Pcp, [address] [address] PCP - General 01/02/18 documented as of this encounter
--- OUTSIDE RECORDS SUMMARY | 2025-01-05 05:46 | XMS_ITS | Encounter Summary ---
Author Organization [facility] Address [address], [place] [address] Care Team Providers Care Ships Equipment Engineer Name Role Phone Found, No Pcp Primary Care Provider Unavailab le Encounter Details Date Type Department Care Team (Latest Contact Info) Description 08/04/1997 Office Visit Renzo Samuel MD Social History Tobacco Use Types Packs/Day Years Used Date Smoking Tobacco: Never Assessed Comments Unknown Sex and Gender Information Value Date Recorded Sex Assigned at Not on file Legal Sex Female 4:54 AM CDT Gender Identity Not on file Sexual Orientation Not on file documented as of this encounter Progress Notes * Renzo Samuel - 08/04/1997 12:00 AM CDTHeight: 33 1/2 inches Weight: 23 pounds, 4 ounces OFC: 46.7 cm. S: The patient is here with his mom and dad for well child exam. No real problems brought up by them. Development is coming along nicely. Several words. O: Eyes, nose, throat chest, abdomen normal. Red reflex bilaterally. Heart and lungs normal. Development normal. Language picking up phrases. Hips abduct well. Back normal. Gait normal. A: Normal 19 month RHM. P: Recommend DPT, Hib tetramune combination plus MMR. Return to see us at age 2 years for next exam. cc: documented in this encounter Plan of Treatment Not on file documented as of this encounter Visit Diagnoses Not on filedocumented in this encounter Care Teams Ships Equipment Engineer Relationship Specialty Start Date End Date Found, No PcpMD [address] [place] [address] PCP - General 01/02/18 documented as of this encounter
--- OUTSIDE RECORDS SUMMARY | 2025-01-05 05:46 | XMS_ITS | Encounter Summary ---
Author Organization [facility] Address [address] [place] [address] Care Team Providers Care Head Char Filter Tank Tender Name Role Phone Found, No Pcp Primary Care Provider Unavailab le Encounter Details Date Type Department Care Team (Latest Contact Info) Description 01/09/1996 Orders Only Marybeth Hernandez, BRICK YARD HAND, NURSING HOME ASSISTANT ADMINISTRATOR [address] [place] [address] Social History Tobacco Use Types Packs/Day Years [...] on filedocumented in this encounter Care Teams Head Char Filter Tank Tender Relationship Specialty Start Date End Date Found, No Pcp, [address] [place] [address] PCP - General 01/02/18 documented as of this encounter
--- OUTSIDE RECORDS SUMMARY | 2025-01-05 05:46 | XMS_ITS | Encounter Summary ---
[facility] Organization [facility] Address [address], [place] [address] Care Team Providers Care Rayon Tester Name Role Phone Found, No Pcp Primary Care Provider Unavailab le Encounter Details Date Type Department Care Team (Latest Contact Info) Description 07/24/1996 Office Visit Jag Rocha Social History Tobacco Use Types Packs/Day Years Used Date Smoking Tobacco: Never Assessed Comments Unknown Sex and Gender Information Value Date Recorded Sex Assigned at Not on file Legal Sex Female 4:54 AM CDT Gender Identity Not on file Sexual Orientation Not on file documented as of this encounter Progress Notes * Jag Rocha - 07/24/1996 12:00 AM CDTS: Has been doing well. In with grandmother today, who takes care of her frequently. Taking many different solids now without difficulty. Bowel movements normal. Vision and hearing appear normal. Good disposition. No problems or concerns. Had no trouble with last immunizations. O: Well developed, well nourished, alert, and in no acute distress. Smiling much of time. E: TMs white with good LM and LR. Anterior fontanelle soft. Throat clear. Chest clear. Heart: Normal sinus rhythm without murmur. Abdomen soft. Genitalia: Normal female. Extremities: Full range of motion. A: Healthy child. P: Tetramune, OPV, hepatitis B #3 (had first one at two weeks of age). RV at ten months. Discussed poisoning, Ipecac. documented in this encounter Plan of Treatment Not on file documented as of this encounter Visit Diagnoses Not on filedocumented in this encounter Care Teams Rayon Tester Relationship Specialty Start Date End Date Found, No Pcp, [address] [place] [address] PCP - General 01/02/18 documented as of this encounter
--- OUTSIDE RECORDS SUMMARY | 2025-01-05 05:46 | XMS_ITS | Encounter Summary ---
Author Organization [employer] Address [address] [address] Care Team Providers Care Air Launch Weapons Technician Name Role Phone Found, No Pcp MD Primary Care Provider Unavailab le Encounter Details Date Type Department Care Team (Latest Contact Info) Description 09/01/1997 Office Visit Verena Sheehan MD Social History Tobacco Use Types Packs/Day Years Used Date Smoking Tobacco: Never Assessed Comments Unknown Sex and Gender Information Value Date Recorded Sex Assigned at Not on file Legal Sex Female 4:54 AM CDT Gender Identity Not on file Sexual Orientation Not on file documented as of this encounter Progress Notes * Verena Sheehan - 09/01/1997 12:00 AM CSTS: The patient is a 31-s[age]oy-vvy child who has never had an ear infection before. She weighs 23 lbs 12 oz. Her temperature is 98.7. She has a respiratory rate of about 24. She has had a runny nose and a cough for about a week. The cough is productive, but primarily when she has been lying down. She was up a fair amount last night coughing and being fussy. She has had a low grade temperature. O: She is alert and active and talkative. Her conjunctivae are normal. Cerumen was removed from both ear canals. The external ear was normal. On the right, the amount that I could see was normal, but the left TM was clearly infected. Her neck was supple without adenopathy. Her mouth was clear without lesions. Her teeth and gums were in good repair. Chest - she had easy respirations with retractions or pulling. Her chest was clear in all keith. Her heart was normal without murmur. A: Left otitis. P: Amoxicillin 125 three times a day for 10 days. cc: TO CHIP COOKER MACHINE documented in this encounter Plan of Treatment Not on file documented as of this encounter Visit Diagnoses Not on filedocumented in this encounter Care Teams Air Launch Weapons Technician Relationship Specialty Start Date End Date Found, No Pcp, [address] [place] [address] PCP - General 01/02/18 documented as of this encounter
[2025-01-05 05:48] VITALS: BP 167/110; PULSE 92; RESP 18; TEMP 37; O2SAT 96; BMI 31.9
--- NOTE | 2025-01-05 06:03 | ED.GENADULT ---
HPI - General Adult General Date Seen: 01/05/25 Chief complaint: Jaw Injury/Pain Stated complaint: jaw pain Time Seen by Provider: 01/05/25 05:47 Source: patient Mode of arrival: ambulatory Limitations: no limitations History of Present Illness HPI narrative: Patient is a 29-year-old female who presents ambulatory with her significant other for left-sided tooth pain that woke her from sleep. She says the pain is on her lower jaw region. She feels throbbing associated with this she thinks it may be her wisdom teeth. She went to sleep feeling well. She took Tylenol before she came in, she had this a few months ago, went away on its own without any treatment. He does not does describe it as getting worse with opening her mouth, there is no problems swallowing. She is teary in the room. She denies any fevers chills or other issue. Associated symptoms: denies other symptoms Treatments prior to arrival: other Related Data Home Medications ?Medication ?Instructions ?Recorded ?Confirmed No Known Home Medications 06/05/23 06/05/23 Allergies Allergy/AdvReac Type Severity Reaction Status Date / Time No Known Drug Allergies Allergy Verified 06/05/23 00:46 Review of Systems Status of ROS: Reports: 10 or more systems reviewed and unremarkable except as noted in History and below PFSH PFS Social History Smoking Status: Former smoker Do you use any of these nicotine containing products: Vaping Products How often do you have a drink containing alcohol: 2-4 times a month How often do you have six or more drinks on one occasion: Never AUDIT-C Alcohol total score: 2 Non-prescribed substance use: marijuana (any form) Exam Narrative: Exam Narrative: On examination she is teary in room 4 she is in no apparent distress her mouth opening is normal showing absence of trismus she has no pain over the TMJ on either side. Her TMs are normal there is no adenopathy anterior posterior chains notable. Her neck is otherwise normal. She has no swelling of her face her mouth opening is normal, she has a little bit of pain over where I would expect her was in teeth to be but I do not see any pointing abscess, normal dentition otherwise. The floor of mouth is quiet. There is no abnormality noted of her after throat. Const: Vital Signs, click to edit/add: Vital Signs - 24 hr 01/05/25 05:48 Temperature 98.6 F Pulse Rate [Pulse Oximeter] 92 Respiratory Rate 18 Blood Pressure [Ri ght Upper Arm] 167/110 H Pulse Oximetry 96 Oxygen Delivery Me thod Room Air Documenting provider has reviewed patient's vital signs: yes Course Course ED Course: I discussed with her, that I think this is more likely from the wisdom teeth, we gave her shot of Toradol which helped her discomfort. We will let her go home at this point. Using ibuprofen and Tylenol rotating regime. Follow-up with dentistry if ongoing signs and symptoms, return here if fevers chills or swelling. Vital Signs Vital signs: Initial Vital Signs Temperature 98.6 F 01/05/25 05:48 Temperature Source Temporal Artery Scan 01/05/25 05:48 Pulse Rate 92 01/05/25 05:48 Pulse Rhythm Regular 01/05/25 05:48 Respiratory Rate 18 01/05/25 05:48 Blood Pressure 167/110 H 01/05/25 05:48 Blood Pressure Mean 129 H 01/05/25 05:48 Blood Pressure Position Sitting 01/05/25 05:48 Pulse Oximetry 96 01/05/25 05:48 Oxygen Delivery Method Room Air 01/05/25 05:48 Vital Signs Temperature 98.6 F 01/05/25 05:48 Pulse Rate 92 01/05/25 05:48 Respiratory Rate 18 01/05/25 05:48 Blood Pressure 167/110 H 01/05/25 05:48 Pulse Oximetry 96 01/05/25 05:48 Oxygen Delivery Method Room Air 01/05/25 05:48 Temperature 98.6 F 01/05/25 05:48 Pulse Rate 92 01/05/25 05:48 Respiratory Rate 18 01/05/25 05:48 Blood Pressure 167/110 H 01/05/25 05:48 Pulse Oximetry 96 01/05/25 05:48 Oxygen Delivery Method Room Air 01/05/25 05:48 Medications Administered Medications: Generic Name Dose Route Start Last Admin Trade Name Freq PRN Reason Stop Dose Admin Ketorolac Tromethamine 30 mg 01/05/25 06:02 01/05/25 06:05 Ketorolac 30 Mg/Ml Inj IM 01/05/25 06:03 30 mg ONCE ONE Administration Medical Decision Making MDM Narrative Medical decision making narrative: I discussed with her that I think this may be her wisdom teeth giving her problems I do not see any evidence of an abscess. Redness swelling or other signs of infection. I think it would be reasonable to give her shot of Toradol have her take Tylenol ibuprofen and follow-up with dental people for further evaluation on Monday. Return here if increasing fevers chills sweats or other issues. Discharge Plan Discharge Clinical Impression: Tooth ache Patient Disposition: Home w/ Parent or Adult Condition: Stable Instructions: Toothache (ED) Additional Instructions: Home rest alternating ibuprofen and Tylenol. You may take ibuprofen 8 hours from now. Follow-up with dental evaluation early in the week if ongoing pain. Return here if fevers chills or other issue. Light diet. Activity Level: Light activity Prescriptions: No Action No Known Home Medications Follow Up/Referrals: Provider,Not a Local [Non-Staff] - Stand Alone Forms: [employer] Info Instructions
[2025-01-05] MEDS: KETOROLAC 30 MG/ML inj IM (06:05)
--- OUTSIDE RECORDS SUMMARY | 2025-01-05 06:07 | XMS_ITS | Encounter Summary ---
Author Organization [facility] Address [address] [place] [address] Care Team Providers Care Reference Test Clerk Name Role Phone Found, No Pcp Primary Care Provider Unavailab le Encounter Details Date Type Department Care Team (Latest Contact Info) Description 01/09/1996 Orders Only Marybeth Hernandez, CORRECTION LIEUTENANT, FITTER TACKER [address] [place] [address] Social History Tobacco Use Types Packs/Day Years [...] on filedocumented in this encounter Care Teams Reference Test Clerk Relationship Specialty Start Date End Date Found, No Pcp, [address] [place] [address] PCP - General 01/02/18 documented as of this encounter
--- OUTSIDE RECORDS SUMMARY | 2025-01-05 06:07 | XMS_ITS | Encounter Summary ---
Author Organization [facility] Address [address] [address] Care Team Providers Care Toy Mechanic Name Role Phone Found, No Pcp [...] on filedocumented in this encounter Care Teams Toy Mechanic Relationship Specialty Start Date End Date Found, No PcpMD [address] [place] [address] PCP - General 01/02/18 documented as of this encounter
--- OUTSIDE RECORDS SUMMARY | 2025-01-05 06:07 | XMS_ITS | Clinical Summary ---
Author Organization [facility] Address [address] [place] [address] Care Team Providers Care Wire Repairer Name Role Phone Emely Muhammad PA-C Primary [...] on file Legal Sex Female 3:19 AM OFFSET PLATE MAKER Gender Identity Not on file Sexual Orientation [...] CHLAMYDIA TRACHOMATIS PCR Routine 09/30/2014 6:13 PM OFFSET PLATE MAKER Supervision of normal first , first trimester HIV ANTIGEN ANTIBODY COMBO Routine 09/30/2014 3:30 PM OFFSET PLATE MAKER Supervision of normal first , unspecified trimester from Last 3 Months or Most Recently Relevant to Health Maintenance Results * Chlamydia trachomatis PCR (09/30/2014 6:13 PM OFFSET PLATE MAKER) Specimen Description [facility] Chlamydia Trachomatis PCR Negative Negative for C. trachomatis rRNA by project management professional mediated amplification. A negative result by project management professional mediated amplification does not preclude the presence of C. trachomatis infection because results are dependent on proper and adequate collection, absence of inhibitors, and sufficient rRNA to be detected. NEG [facility] Specimen from vagina (specimen) 09/30/2014 6:13 PM OFFSET PLATE MAKER 09/30/2014 6:15 PM OFFSET PLATE MAKER us Nikole Taylor DO LAB - MICRO GENERAL ORDER LEONIDAS Final Result [facility] [address] [place], [place] [address] [address] [place] [address] * HIV Antigen Antibody Combo (09/30/2014 3:30 PM OFFSET PLATE MAKER) HIV Antigen Antibody Combo Nonreactive HIV-1 p24 Ag & HIV-1/HIV-2 Ab Not Detected NR [facility] Blood specimen (specimen) 09/30/2014 3:30 PM OFFSET PLATE MAKER 09/30/2014 3:35 PM OFFSET PLATE MAKER us Nikole Talyor DO LAB - BLOOD ORDERABLES Fi nal Result [facility] [address] [place] [address] from Last 3 Months or Most Recently Relevant to Health Maintenance [facility] Care Teams Wire Repairer Relationship Specialty Start Date End Date Emely Muhammad PA-C [address] [place] [address] PCP - General Family Practice 05/17/13
--- OUTSIDE RECORDS SUMMARY | 2025-01-05 06:07 | XMS_ITS | Encounter Summary ---
Author Organization [facility] Address [address] [place] [address] Care Team Providers Care Network Cable Installer Name Role Phone Found, No Pcp Primary [...] on filedocumented in this encounter Care Teams Network Cable Installer Relationship Specialty Start Date End Date Found, No PcpMD [address] [place] [address] PCP - General 01/02/18 documented as of this encounter
--- OUTSIDE RECORDS SUMMARY | 2025-01-05 06:07 | XMS_ITS | Encounter Summary ---
Author Organization [facility] Address [address] [address] Care Team Providers Care Roll Picker Name Role Phone Found, No Pcp Primary [...] on filedocumented in this encounter Care Teams Roll Picker Relationship Specialty Start Date End Date Found, No Pcp, [address] [place] [address] PCP - General 01/02/18 documented as of this encounter
--- OUTSIDE RECORDS SUMMARY | 2025-01-05 06:07 | XMS_ITS | Encounter Summary ---
Author Organization [facility] Address [address] [place] [address] Care Team Providers Care Route Deliverer Name Role Phone Found, No Pcp Primary [...] on filedocumented in this encounter Care Teams Route Deliverer Relationship Specialty Start Date End Date Found, No Pcp, [address] [facility] [place] [address] PCP - General 01/02/18 documented as of this encounter
--- OUTSIDE RECORDS SUMMARY | 2025-01-05 06:07 | XMS_ITS | Encounter Summary ---
Author Organization [facility] Address [address] [place] [address] Care Team Providers Care Lace Mender Name Role Phone Found, No Pcp Primary [...] on filedocumented in this encounter Care Teams Lace Mender Relationship Specialty Start Date End Date Found, No Pcp, [address] [place] [address] PCP - General 01/02/18 documented as of this encounter
--- OUTSIDE RECORDS SUMMARY | 2025-01-05 06:07 | XMS_ITS | Clinical Summary ---
Author Organization [facility] Address [address] [place] [address] Care Team Providers Care Lidder Name Role Phone Naz Humphrey MD Primary [...] (07/05/2021): US OB FOLLOW UP PER FETUS: [facility] Referred By: AMPARO LUNA Indications Code [...] (07/05/2021): US OB FOLLOW UP PER [facility]ETUS: [facility] 07/05/2021 Referred By: AMPARO LUNA Indications Code 34 weeks gestation of Z3A.34 MOB with heart murmur, PFO Declined serum screening 04/12/21 - Targeted ultrasound, EFW 69% Dx GDMA2 - insulin Interval growth today [facility] (07/05/2021): EFW 95% (3117 grams)/AC > [...] 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 1 pull with vacuum, 3rd degree with extension laceration. 100 EBL. Pushed 4 hours 44 minutes 2020 Term 39w 1d 9h 38m 9h 00m/0h 30m/0h 08m 4.09 kg (9 lb 0.3 oz) M VAGINA L FLORESITA Epidur al Livin g 8 9 ALKA SCHAFER,BB DEVONTE Mercado, Elier rodas MD Complications:None Delivery Location:Hospital ( [facility] [address] L&D TRIAGE) Last Filed [...] Procedure Name Priority Date/Time Associated Diagnosis Comments GLASSWARE ENGRAVER THIN PREP PAP SCREEN IMAGED Routine 01/06/2022 [...] Recently Relevant to Health Maintenance Results * GLASSWARE ENGRAVER THIN PREP PAP SCREEN IMAGED (01/06/2022 3:50 PM CDT) Case Report Gynecologic Cytology Report Case: [id number] Authorizing Provider: Naz Humphrey MD Collected: 01/06/2022 [id number] Ordering Location: [facility] Received: 01/06/2022 1550 Clinic First Screen: Mary Guillen Specimen: GLASSWARE ENGRAVER ThinPrep Vial Screening, Cervical 01/19/2022 10:39 AM CDT [facility] INTERPRETATION/ RESULT NEGATIVE FOR INTRAEPITHELIAL LESION OR MALIGNANCY (NIL) (none) 01/19/2022 10:39 AM CDT [facility] IMEN ADEQUACY Satisfactory for evaluation Endocervical component present 01/19/2022 10:39 AM CDT [facility] HPV REQUEST HPV if ASCUS 01/19/2022 10:39 AM CDT [facility] Date of LMP Prior to 01/19/2022 10:39 AM CDT [facility] Last Pap Date Never had 01/19/2022 10:39 AM CDT [facility] Last Pap Result First Pap/Unknown 10:39 AM CDT [facility] Abnormal Pap or [place] Bx in last 5 years No 01/19/2022 10:39 AM CDT [facility] Menstrual Status Hormonally Suppressed 01/19/2022 10:39 AM CDT [facility] [place] Bx Done Today No 01/19/2022 10:39 AM CDT [facility] Additional Information None given 01/19/2022 10:39 AM CDT [facility] Comment: Cytology is screened at [facility] - [address], [place] [address] and [facility] - [address], [place] [address] and [facility] - [address] [place] [address] Interpreted at [facility] Certain [facility] - [address], [place] [address] Automated Review Successful 01/19/2022 10:39 AM CDT [facility] Comment:Specimen processed s uccessfully by automated shampooer device, ThinPrep Imaging System, [employer] Note The pap test is a [...] and malignant lesions. 01/19/2022 10:39 AM CDT [facility] Other (Cervical) Non-Blood / Unknown 01/06/2022 3:50 PM CDT 01/06/2022 3:50 PM CDT Naz Humphrey MD PATHOLOGY/CYTOLOGY Melinda l Result Performing Organization Address City/[facility]/ZIP Co de Phone Number [facility] [address] [place] [address], [place] * ANTI HCV (02/24/2021 3:14 PM CDT) HEPATITIS C ANTIBODY Non-React aj Non-React aj 02/24/2021 9:34 PM CDT [facility] Comment:Antibodies to HCV no t detected; does not exclude the possibility of exposure to HCV. Blood BLOOD SPECIMEN / Unknown Venipuncture / Unknown 02/24/2021 3:14 PM CDT 02/24/2021 3:18 PM CDT us Amparo Luna CNM SEND OUTS Final Resu lt [facility] [address] [place] [id number], [place] * ANTI HIV 1/2 (02/24/2021 3:14 PM CDT) HIV-1/HIV-2 ANTIBODY Non-Reacti ve Non-Reacti ve 02/24/2021 9:03 PM CDT [facility] Comment:HIV-1 p24 and HIV-1/ HIV-2 Ab not detected. Blood BLOOD SPECIMEN / Unknown Venipuncture / Unknown 02/24/2021 3:14 PM CDT 02/24/2021 3:18 PM CDT Amparo Luna CN SEND OUTS Final Resu lt [facility] [address] [place] [address], [place] from Last 3 Months or Most [...] Code Status Discussion: Not Discussed Care Teams Lidder Relationship Specialty [place] [address] [place] [address] PCP - General Family Practice 02/02/22
--- OUTSIDE RECORDS SUMMARY | 2025-01-05 06:07 | XMS_ITS | Encounter Summary ---
Author Organization [employer] Address [address] [place] [address] Care Team Providers Care Linux System Admin Name Role Phone Found, No Pcp MD Primary Care Provider Unavailab le Encounter Details Date Type Department Care Team (Latest Contact Info) Description 01/09/1996 Office Visit Marybeth Hernandez APRN, AME [address], [place] [id number] Social History Tobacco Use Types Packs/Day Years [...] present and equal. Extremities within normal limits. Skin--malay spots on lower back and buttocks. Neuro within normal limits. A: Healthy 2 week old. P: Hepatitis B #1 today. Discussion held with mother concerning the 3- and 6-week growth spurts. Back at age 2 months for next complete physical. ENSARY TECHNICIAN documented in this encounter Plan of Treatment Not on file documented as of this encounter Visit Diagnoses Not on filedocumented in this encounter Care Teams Linux System Admin Relationship Specialty Start Date End Date Found, No Pcp, [address] [place] [address] PCP - General 01/02/18 documented as of this encounter
--- OUTSIDE RECORDS SUMMARY | 2025-01-05 06:07 | XMS_ITS | Encounter Summary ---
[facility] Address [address], [place] [address] Care Team Providers Care Geochemical Laboratory Technician Name Role Phone Found, No Pcp [...] 10/10/1997 12:00 AM CSTS: This is a [id number] little girl here with her aunt because [...] Recheck in three to four weeks. cc: PPER OPAQUER documented in this encounter Plan of Treatment Not on file documented as of this encounter Visit Diagnoses Not on filedocumented in this encounter Care Teams Geochemical Laboratory Technician Relationship Specialty Start Date End Date Found, No PcpMD [address] [place] [address] PCP - General 01/02/18 documented as of this encounter
--- OUTSIDE RECORDS SUMMARY | 2025-01-05 06:07 | XMS_ITS | Encounter Summary ---
Author Organization [facility] Address [address] [place] [address] Care Team Providers Care Senior Financial Accountant Name Role Phone Found, No Pcp Primary [...] on filedocumented in this encounter Care Teams Senior Financial Accountant Relationship Specialty Start Date End Date Found, No Pcp, [address] [place] [address] PCP - General 01/02/18 documented as of this encounter
--- OUTSIDE RECORDS SUMMARY | 2025-01-05 06:07 | XMS_ITS | Encounter Summary ---
Author Organization [facility] Address [address], [place] [address] Care Team Providers Care Manager E Commerce Name Role Phone Found, No Pcp Primary [...] on filedocumented in this encounter Care Teams Manager E Commerce Relationship Specialty Start Date End Date Found, No Pcp, [address] [place] [address] PCP - General 01/02/18 documented as of this encounter
--- OUTSIDE RECORDS SUMMARY | 2025-01-05 06:07 | XMS_ITS | Encounter Summary ---
Author Organization [facility] [employer] Address [address], [place] [address] Care Team Providers Care Mall Manager Name Role Phone Found, No Pcp MD Primary Care Provider Unavailab le Encounter Details Date Type Department Care Team (Latest Contact Info) Description 01/01/1996 Office Visit Marybeth Hernandez APRN, [facility] [address] [place], [place] [id number] Social History Tobacco Use Types Packs/Day Years [...] also the beginning of her immunizations. cc: COURSE EQUIPMENT OPERATOR documented in this encounter Plan of Treatment Not on file documented as of this encounter Visit Diagnoses Not on filedocumented in this encounter Care Teams Mall Manager Relationship Specialty Start Date End Date Found, No Pcp, [address] [facility] [address] PCP - General 01/02/18 documented as of this encounter
--- OUTSIDE RECORDS SUMMARY | 2025-01-05 06:07 | XMS_ITS | Encounter Summary ---
Author Organization [facility] Address [address] [place] [address] Care Team Providers Care Fruit Tester Name Role Phone Found, No Pcp Primary Care Provider Unavailab le Encounter Details Date Type Department Care Team (Latest Contact Info) Description 01/06/1998 Orders Only Graeme Jimenez MD [facility] [address] [place] [address] Social History Tobacco Use Types Packs/Day Years [...] on filedocumented in this encounter Care Teams Fruit Tester Relationship Specialty Start Date End Date Found, No Pcp, [address] [place] [address] PCP - General 01/02/18 documented as of this encounter
--- OUTSIDE RECORDS SUMMARY | 2025-01-05 06:07 | XMS_ITS | Encounter Summary ---
Author [facility] Address [address] [address] Care Team Providers Care Merit System Director Name Role Phone Found, No Pcp MD [...] 12:00 AM CSTS: The patient is a 10-rzygj-ept child who has never had an ear [...] times a day for 10 days. cc: OSAL LEAD WRITER documented in this encounter Plan of Treatment Not on file documented as of this encounter Visit Diagnoses Not on filedocumented in this encounter Care Teams Merit System Director Relationship Specialty Start Date End Date Found, No Pcp, [address] [place] [address] PCP - General 01/02/18 documented as of this encounter
--- OUTSIDE RECORDS SUMMARY | 2025-01-05 06:07 | XMS_ITS | Clinical Summary ---
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
== END 2025-01-05 06:38 | disposition home or self-care (01) ==
LOC: ED 06:06
PROVIDERS: Emergency Provider Family Medicine; PCP Family Medicine
DX: K08.89 Other specified disorders of teeth and supporting structures (principal)
CPT/HCPCS: 96372; 99283; J1885